=== PATIENT | male | born 1940 | race Caucasian/White ===

== ENCOUNTER 2022-06-19 09:01 | Observation (INO) ==
[2022-06-19 09:49] LABS: Basophils # 0.1 K/mcL (0.0-0.2); Basophils % 1.1 %; Eosinophils # 0.2 K/mcL (0.0-0.6); Eosinophils % 3.4 %; Hematocrit 43.2 % (37.5-50.1); Hemoglobin 14.1 g/dL (12.9-16.9); Immature Granulocytes % 0.4 % (0-4); Lymphocytes # 1.2 K/mcL (0.6-4.6); Lymphocytes % 24.6 %; Mean Corpuscular HGB Conc 32.6 g/dL (31.6-35.5); Mean Corpuscular Hemoglobin 31.6 pg (28.0-33.3); Mean Corpuscular Volume 96.9 fL (83.0-100.0); Mean Platelet Volume 10.7 fL (9.4-12.4); Monocytes # 0.5 K/mcL (0.0-1.3); Monocytes % 10.3 %; Neutrophils # 2.9 K/mcL (1.6-8.9); Platelet Count 132 K/mcL (140-400); Red Blood Count 4.46 M/mcL (4.19-5.50); Red Cell Distribution Width 13.8 % (11.5-14.5); Segmented Neutrophils % 60.2 %; White Blood Count 4.8 K/mcL (4.3-11.1)
[2022-06-19 09:50] LABS: INR 1.2; Prothrombin Time 13.1 Seconds (9.4-12.1)
[2022-06-19 09:52] LABS: Activated Partial Thrombo Time 37.2 Seconds (26.0-36.0)
[2022-06-19 10:00] LABS: Alanine Aminotransferase 4 Units/L (7-52); Albumin 4.2 g/dL (3.5-5.7); Albumin/Globulin Ratio 1.6 (1.1-2.2); Alkaline Phosphatase 70 Units/L (34-104); Aspartate Amino Transferase 10 Units/L (13-39); BUN/Creatinine Ratio 14 (6-26); Bilirubin,Direct 0.2 mg/dL (0.0-0.2); Bilirubin,Indirect 1.4 mg/dL (0.0-1.0); Bilirubin,Total 1.6 mg/dL (0.3-1.0); Blood Urea Nitrogen 16 mg/dL (8-23); Calcium 9.4 mg/dL (8.6-10.3); Carbon Dioxide 37 mEq/L (23-29); Chloride 97 mEq/L (98-107); Digoxin 0.4 ng/mL (0.8-2.0); Globulin 2.6 g/dL (2.4-3.5); Glucose 89 mg/dL (70-105); Magnesium 2.1 mg/dL (1.6-2.6); Osmolality,Calculated 287 (280-300); Potassium 4.4 mEq/L (3.5-5.1); Sodium 138 mEq/L (136-145); Total Protein 6.8 g/dL (6.4-8.9); Troponin I < 0.03 ng/mL (< 0.04)
[2022-06-19] MEDS ORDERED: Ondansetron 4 MG/2 ML VIAL IVP PRN (13:10)
[2022-06-19] MEDS ORDERED: Naloxone 0.4 MG/ML INJ IVP PRN (13:10)
[2022-06-19] MEDS ORDERED: Acetaminophen 325 MG TABLET PO PRN (13:10)
[2022-06-19] MEDS ORDERED: *HR* OxyCODONE/APAP 10/325 TABLET PO PRN (13:12)
[2022-06-19] MEDS ORDERED: Potassium Chloride Elixir 20 MEQ/15 ML UDC PO PRN (13:12)
[2022-06-19] MEDS ORDERED: *HR* HYDROcodone/Acet 5/325 mg TABLET PO PRN (13:52)
[2022-06-19] MEDS: 0.9 % Sodium Chloride 1,000 ML IVC SCH ×2 (13:56→21:52)
[2022-06-19] MEDS: Carbidopa/Levodopa 25/100 TABLET PO SCH ×2 (16:58→20:36)
[2022-06-19 19:23] VITALS: BP 149/87; PULSE 85; RESP 16; TEMP 97.7; O2SAT 97
[2022-06-20] MEDS ORDERED: *HR* Digoxin 0.125 MG TABLET PO SCH (09:00)
[2022-06-20] MEDS ORDERED: VIT C PO SCH (09:00)
[2022-06-20] MEDS ORDERED: VIT E PO SCH (09:00)
[2022-06-20] MEDS ORDERED: LUTEIN PO SCH (09:00)
[2022-06-20] MEDS ORDERED: Aspirin Enteric Coated 81 MG Tablet PO SCH (09:00)
[2022-06-20] MEDS ORDERED: OMEGA PO SCH (09:00)
[2022-06-20] MEDS ORDERED: *HR* Amiodarone 200 MG TABLET PO SCH (09:00)
== END 2022-06-19 23:59 | disposition other institution (70) ==
LOC: INPPIK 09:01 → EMEROOPIK 09:01 → INPPIK 12:29
PROVIDERS: ADMIT Internal Medicine; ATTEND Internal Medicine